=== PATIENT | female | born 1995 | race Caucasian/White ===

== ENCOUNTER 2020-02-05 18:39 | Emergency (ER) | payer BC, MEDICAID, OTHER ==
[2020-02-05] MEDS ORDERED: LIDOCAINE 2% 50 ML MDV SUBQ STA (19:24)
[2020-02-05] MEDS ORDERED: cefTRIAXone 1 GM VIAL IM STA (19:25)
[2020-02-05] MEDS ORDERED: LIDOCAINE 1% 2 ML VIAL MC ONE (19:25)
[2020-02-05] MEDS ORDERED: LIDOCAINE 1% 2 ML VIAL ONE (19:36)
--- NOTE | 2020-02-05 20:00 | ED Physician Documentation ---
History of Present Illness - Stated complaint Stated Complaint: CAT BITE - Chief complaint Chief Complaint: Wound - History obtained from History obtained from: Patient - History of Present Illness Timing: Yesterday Pain level max: 5 Pain level now: 4 - Additonal information Additional information: 24-year-old female presents to the emergency department stating that she was bit in the right index finger yesterday by her cat. Increased swelling redness today. Went to the clinic this morning and was started on Augmentin. Tetanus is up-to-date. She states redness and swelling have increased since that time. No fevers. Review of Systems Constitutional: denies: Fever, Chills : denies: Now EGA Skin: denies: Rash PD PAST MEDICAL HISTORY - Past Medical History Past Medical History: Yes GI: GERD - Past Surgical History Past Surgical History: No - Present Medications Home Medications: Ambulatory Orders Medication Instructions Recorded Confirmed Norgestimate-Ethinyl Estradiol 1 each PO 11/02/13 11/02/13 [Ortho Tri-Cyclen Lo] Acyclovir 200 mg PO 02/05/20 Amox/Clav 875/125 [Augmentin] 1 each PO ONCE 02/05/20 02/05/20 - Allergies Allergies/Adverse Reactions: Allergies Allergy/AdvReac Type Severity Reaction Status Date / Time acetaminophen [From Vicodin] Allergy Rash Verified 02/05/20 18:59 hydrocodone bitartrate * Allergy Rash Verified 02/05/20 18:59 [From Vicodin] Sulfa (Sulfonamide Allergy Rash Verified 02/05/20 18:59 Antibiotics) - Social History Does the pt smoke?: No Smoking Status: Never smoker Does the pt drink ETOH?: No Does the pt have substance abuse?: No - Immunizations Immunizations are current?: Yes - POLST Patient has POLST: No PD ED PE NORMAL - Vitals Vital signs reviewed: Yes - General General: Alert and oriented X 3, No acute distress - HEENT HEENT: Moist mucous membranes - Neck Neck: Supple, no meningeal sign - Derm Derm: Warm and dry - Extremities Extremities: Other (R index finger - swelling and erythema to the prox phalanx of the finger. No palmar tenderness. no pain with extension of the finger. ) - Neuro Neuro: Alert and oriented X 3 Results - Vitals Vitals: Vital Signs - 24 hr 02/05/20 02/05/20 18:56 20:06 Temperature 36.7 C 36.6 C Heart Rate 104 H 92 Respiratory 16 16 Rate Blood Pressure 151/106 H 130/90 H O2 Saturation 99 100 Oxygen O2 Source Room air PD MEDICAL DECISION MAKING - ED course Complexity details: considered differential, d/w patient ED course: Small pustule was visible on the finger. The finger was anesthetized and this was removed. Slight purulence drained. Ultrasound performed. No deep abscess visible. Tendon sheath appears normal. Given Rocephin. Will continue the Augmentin. We will have her rechecked if she is not improved by tomorrow. Patient counseled regarding signs and symptoms for which I believe and urgent re-evaluation would be necessary. Patient with good understanding of and agreement to plan and is comfortable going home at this time This document was made in part using voice recognition software. While efforts are made to proofread this document, sound alike and grammatical errors may occur. Departure - Departure Disposition: 01 Home, Self Care Clinical Impression: Cat bite Qualifiers: Encounter type: initial encounter Qualified Code(s): W55.01XA - Bitten by cat, initial encounter Cellulitis Qualifiers: Site of cellulitis: extremity Site of cellulitis of extremity: finger Laterality: right Qualified Code(s): L03.011 - Cellulitis of right finger Condition: Good Instructions: ED Bite Animal General, ED Infec Skin Cellulitis Follow-Up: Ashia Chaney PA [Primary Care Provider] - Within 3 Days Comments: Continue the Augmentin at home. This should start decreasing by tomorrow. If it is worsening or continuing to spread, please return to the emergency department for repeat evaluation. Discharge Date/Time: 02/05/20 20:06
[2020-02-05 20:07] VITALS: BP 130/90
== END 2020-02-05 20:06 | disposition home or self-care (01) ==
LOC: ED 18:39
DX: S61.250A Open bite of right index finger without damage to nail, initial encounter (principal); L03.011 Cellulitis of right finger; W55.01XA Bitten by cat, initial encounter
CPT/HCPCS: 26010

== ENCOUNTER 2021-12-17 12:08 | Emergency (ER) | payer MEDICAID ==
[2021-12-17 12:50] LABS: BILIRUBIN,URINE NEGATIVE (NEGATIVE); GLUCOSE, URINE (UA) NEGATIVE (NEGATIVE); KETONES,URINE (UA) >=80 mg/dL (NEGATIVE); LEUKOCYTE ESTERASE, URINE NEGATIVE (NEGATIVE); NITRITE,URINE NEGATIVE (NEGATIVE); OCCULT BLOOD,URINE LARGE (NEGATIVE); PROTEIN,URINE TRACE mg/dL (NEGATIVE); UROBILINOGEN,URINE 0.2 (NORMAL) E.U./dL (NORMAL)
[2021-12-17 12:57] LABS: CLARITY,URINE HAZY (CLEAR); HCG UR QUAL NEGATIVE
[2021-12-17 13:00] LABS: BASOPHILS # (AUTO) 0.1 10^3/uL (0.0-0.1); BASOPHILS % (AUTO) 0.4 %; EOSINOPHILS % (AUTO) 0.1 %; HCT - HEMATOCRIT 42.9 % (37.0-47.0); LYMPHOCYTES # (AUTO) 2.5 10^3/uL (1.5-3.5); LYMPHOCYTES % (AUTO) 17.7 %; MEAN CORPUSCULAR HEMOGLOBIN 29.4 pg (27.0-31.0); MEAN CORPUSCULAR HGB CONC 32.6 g/dL (32.0-36.0); MEAN CORPUSCULAR VOLUME 89.9 fL (81.0-99.0); MEAN PLATELET VOLUME 9.8 fL (7.9-10.8); MONOCYTES # (AUTO) 0.9 10^3/uL (0.0-1.0); MONOCYTES % (AUTO) 6.3 %; NEUTROPHILS # (AUTO) 10.7 10^3/uL (1.5-6.6); NEUTROPHILS % (AUTO) 75.1 %; PLT - PLATELET COUNT 445 10^3/uL (130-450); RED BLOOD COUNT 4.77 10^6/uL (4.20-5.40); RED CELL DISTRIBUTION WIDTH 13.4 % (12.0-15.0); WHITE BLOOD COUNT 14.2 x10^3/uL (4.8-10.8)
[2021-12-17 13:02] LABS: ALBUMIN 4.8 g/dL (3.2-5.5); ALBUMIN/GLOBULIN RATIO 1.3 (1.0-2.2); CALCIUM 9.6 mg/dL (8.5-10.3); CREATININE 0.8 mg/dL (0.4-1.0); POTASSIUM 3.2 mmol/L (3.5-5.0); TOTAL PROTEIN 8.6 g/dL (6.7-8.2)
[2021-12-17 13:14] LABS: BACTERIA,URINE Few /HPF (None Seen); EPITHELIAL CELLS,UR FEW Transitional /HPF (<= Few); MUCUS,URINE Marked Strands; RBC,URINE 0-5 /HPF (0-5); SQUAMOUS EPITHELIAL CELL,UR FEW Squamous (<= Few); WBC,URINE 0-3 /HPF (0-5)
[2021-12-17] MEDS ORDERED: SODIUM CHLORIDE 0.9% 1,000 ML IV STA (14:35)
[2021-12-17] MEDS ORDERED: MORPHINE 2 MG/ML CARPUJECT IVP STA (14:35)
--- NOTE | 2021-12-17 14:43 | ED Physician Documentation ---
PD HPI ABD PAIN - Stated complaint Stated Complaint: ABD PX,NAUSEA,SHAKING - Chief complaint Chief Complaint: Abd Pain - History obtained from History obtained from: Patient - History of Present Illness Timing - details: Gradual onset Pain level max: 8 Pain level now: 6 Quality: Aching, Pain Radiation: No: Chest, , Lower back, Left flank, Left shoulder, Right flank, Right shoulder, Upper back Associated symptoms: No: Fever, Nausea, Vomiting, Hematemesis, Diarrhea, Constipation, Melena, Hematochezia, Dysuria, Hematuria, Chest pain, Dizzy, Near syncope / syncope, Loss of appetite, Weight loss, Vaginal dc - Additional information Additional information: Patient is a 26-year-old female who presents to the emergency department with right lower quadrant abdominal pain that started last night and has continued today. Worse with movement, better with rest. Worse with palpation. Nonradiating. She states she started her menses 2 days ago. Denies any possibility of . No urinary symptoms. Patient states that it started after eating [place] food, had vomiting last night. 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 : None HEENT: None Psych: None Musculoskeletal: None Derm: None - Past Surgical History Past Surgical History: No - Present Medications Home Medications: Ambulatory Orders Medication Instructions Recorded Confirmed Norgestimate-Ethinyl Estradiol 1 each PO DAILY 11/02/13 12/17/21 [Ortho Tri-Cyclen Lo] Acyclovir 200 mg PO PRN PRN 02/05/20 12/17/21 Amox/Clav 875/125 [Augmentin] 1 tab PO Q12H #20 tablet 12/17/21 Ondansetron Odt [Zofran] 4 mg TL Q6H PRN #10 tablet 12/17/21 Oxycodone HCl/Acetaminophen 1 - 2 each PO Q6H PRN #14 tablet 12/17/21 [Percocet 5-325 mg Tablet] - Allergies Allergies/Adverse Reactions: Allergies Allergy/AdvReac Type Severity Reaction Status Date / Time acetaminophen [From Vicodin] Allergy Rash Verified 12/17/21 12:24 hydrocodone bitartrate * Allergy Rash Verified 12/17/21 12:24 [From Vicodin] Sulfa (Sulfonamide Allergy Rash Verified 12/17/21 12:24 Antibiotics) - Social History Does the pt smoke?: No Smoking Status: Never smoker Does the pt drink ETOH?: No Does the pt have substance abuse?: Yes Substance Use and Type: Marijuana - Immunizations Immunizations are current?: Yes - POLST Patient has POLST: No PD ED PE NORMAL - Vitals Vital signs reviewed: Yes - General General: Alert and oriented X 3, No acute distress, Well developed/nourished - HEENT HEENT: PERRL, Moist mucous membranes - Neck Neck: Supple, no meningeal sign - Cardiac Cardiac: RRR, Strong equal pulses - Respiratory Respiratory: No respiratory distress, Clear bilaterally - Abdomen Abdomen: Soft, Non distended, Other (Tender to palpation right lower quadrant near McBurney's point. No peritoneal signs. Negative Rovsing, psoas, obturator signs.. Negative heeltap) - Derm Derm: Warm and dry - Extremities Extremities: No deformity - Neuro Neuro: Alert and oriented X 3 - Psych Psych: Normal mood, Normal affect Results - Vitals Vitals: Vital Signs - 24 hr 12/17/21 12/17/21 12/17/21 12:25 14:00 16:00 Temperature 36.9 C 36.6 C 36.6 C Heart Rate 114 H 97 70 Respiratory 20 16 16 Rate Blood Pressure 154/123 H 169/148 H 169/134 H O2 Saturation 100 100 99 Oxygen O2 Source Room air - Labs Labs: Laboratory Tests 12/17/21 12/17/21 12/17/21 12:38 12:38 12:44 WBC 14.2 H RBC 4.77 Hgb 14.0 Hct 42.9 MCV 89.9 MCH 29.4 MCHC 32.6 RDW 13.4 Plt Count 445 MPV 9.8 Neut # (Auto) 10.7 H Lymph # (Auto) 2.5 [place] # (Auto) 0.9 Eos # (Auto) 0.0 Baso # (Auto) 0.1 Absolute Nucleated RBC 0.00 Nucleated RBC % 0.0 Sodium Potassium Chloride Carbon Dioxide Anion Gap BUN Creatinine Estimated GFR (MDRD) Glucose Calcium Total Bilirubin AST ALT Alkaline Phosphatase Total Protein Albumin Globulin Albumin/Globulin Ratio Lipase Urine Color YELLOW Urine Clarity HAZY Urine pH 7.0 Ur Specific Riley 1.020 Urine Protein TRACE Urine Glucose (UA) NEGATIVE Urine Ketones >=80 H Urine Occult Blood LARGE H Urine Nitrite NEGATIVE Urine Bilirubin NEGATIVE Urine Urobilinogen 0.2 (NORMAL) Ur Leukocyte Esterase NEGATIVE Urine RBC 0-5 Urine WBC 0-3 Ur Epithelial Cells FEW Transitional Ur Squamous Epith Cells FEW Squamous Urine Bacteria Few Urine Mucus Marked Strands Ur Microscopic Review INDICATED Urine Culture Comments NOT INDICATED Urine HCG, Qual NEGATIVE 12/17/21 12:44 WBC RBC Hgb Hct MCV MCH MCHC RDW Plt Count MPV Neut # (Auto) Lymph # (Auto) [place] # (Auto) Eos # (Auto) Baso # (Auto) Absolute Nucleated RBC Nucleated RBC % Sodium 137 Potassium 3.2 L Chloride 100 L Carbon Dioxide 24 Anion Gap 13.0 BUN 8 Creatinine 0.8 Estimated GFR (MDRD) 88 L Glucose 118 H Calcium 9.6 Total Bilirubin 1.0 AST 24 ALT 15 Alkaline Phosphatase 78 Total Protein 8.6 H Albumin 4.8 Globulin 3.8 Albumin/Globulin Ratio 1.3 Lipase 34 Urine Color Urine Clarity Urine pH Ur Specific Riley Urine Protein Urine Glucose (UA) Urine Ketones Urine Occult Blood Urine Nitrite Urine Bilirubin Urine Urobilinogen Ur Leukocyte Esterase Urine RBC Urine WBC Ur Epithelial Cells Ur Squamous Epith Cells Urine Bacteria Urine Mucus Ur Microscopic Review Urine Culture Comments Urine HCG, Qual - Rads (name of study) CT abdomen pelvis Radiology: Final report received, EMP read contemporaneously, See rad report PD MEDICAL DECISION MAKING - ED course Complexity details: reviewed results, re-evaluated patient, considered differential, d/w patient, d/w family, d/w oncology consultant ED course: 26-year-old female with abdominal pain. Unclear etiology. Mild leukocytosis. Had vomiting last night. Pain well controlled in the emergency department. Tolerating p.o. without difficulty. There is no right lower quadrant inflammatory change, appendix not definitively visualized. Discussed the case with Dr. Reyes, general surgery on-call, Reviewed all labs and radiographic images, she recommends placing the patient on oral antibiotics and having her follow-up in 24 to 48 hours if she is not improved. Patient is well-appearing, nontoxic. Afebrile. Possible gastroenteritis? Appendicitis precautions given at bedside. Patient counseled regarding signs and symptoms for which I believe and urgent re-evaluation would be necessary. Patient with good understanding of and agreement to plan and is comfortable going home at this time This document was made in part using voice recognition software. While efforts are made to proofread this document, sound alike and grammatical errors may occur. IMPRESSION: Appendix is not visualized. However, no right lower quadrant inflammatory change. No bowel obstruction. No free fluid or free air. Departure - Departure Disposition: Home, Self Care Clinical Impression: Abdominal pain Qualifiers: Abdominal location: right lower quadrant Qualified Code(s): R10.31 - Right lower quadrant pain Condition: Good Instructions: ED Abdominal Pain Appendx Poss Follow-Up: MANINDER POTTER ARNP [Primary Care Provider] - Within 3 Days Prescriptions: Amox/Clav 875/125 [Augmentin] 1 tab PO Q12H #20 tablet Oxycodone HCl/Acetaminophen [Percocet 5-325 mg Tablet] 1 - 2 each PO Q6H PRN #14 tablet PRN Reason: pain Ondansetron Odt [Zofran] 4 mg TL Q6H PRN #10 tablet PRN Reason: Nausea / Vomiting Comments: Your prescriptions were sent to [facility] [place] in [place]. You should start to improve within the next 24 hours, if you develop fevers, worsening pain or worsening symptoms, please return for further evaluation. As we discussed your appendix was not seen clearly on CT scan, but they do not see secondary signs of appendicitis. I did speak with the general surgeon on-call, Dr. Daugherty as well. We will trial you on antibiotics for home to see if your symptoms resolve. I am prescribing a short course of narcotic pain medication for you. These are potentially dangerous and addictive medications that should be used carefully. These medications may constipate you. Take an [id number] stool softener (docusate) twice daily with plenty of water while taking these medications. If you go 24 hours without a bowel movement, take [id number] miralax, per package instructions. Do not drink or drive while taking these medications. If you received narcotic or sedating medications while in the emergency department, do not drive for 24 hours. Store this medication in a safe, secure place and out of reach of children. It is a violation of federal law to give or sell this medication to another person or to use in a manner other than prescribed. The ED will not refill narcotic prescriptions, including prescriptions lost or stolen. To dispose of unwanted medications: 1. [facility] [address] in [place] has a medication drop box. They accept prescription medications (in pill form) Thursday through Thursday 9:00 a.m. to 5:00 p.m. 2. [facility] accepts prescription medications (in pill form only) for disposal year round. Call for more information. 3. Contact the [facility] for the next [facility] sponsored prescription drug collection event. , [phone], or [phone]; Discharge Date/Time: 12/17/21 16:38
[2021-12-17] MEDS ORDERED: IOVERSOL 320 100 ML VIAL IVP ONE ×2 (14:49→15:01)
--- NOTE | 2021-12-17 15:40 | CT Report ---
PROCEDURE: Abdomen/Pelvis W INDICATIONS: RLQ abd pain CONTRAST: IV CONTRAST: Optiray 320 ml: 100 PO CONTRAST: *NO PO CONTRAST TECHNIQUE: After the administration of IV contrast, 5 mm thick sections acquired from the diaphragms to the symp hysis. 5 mm thick coronal and sagittal reformats were acquired. For radiation dose reduction, the f ollowing was used: automated exposure control, adjustment of mA and/or kV according to patient size. COMPARISON: None. FINDINGS: Image quality: Excellent. ABDOMEN: Lung bases: Lung bases are clear. Heart size is normal. Solid organs: Liver and spleen are normal in size and enhancement. Mild steatosis is present. Gallbl adder is unremarkable Biliary system is non dilated. Pancreas enhances normally. No adrenal nodule s. Kidneys demonstrate normal size and enhancement, without hydronephrosis. Peritoneum and bowel: Bowel loops demonstrate normal wall thickness and caliber. No free fluid or a ir. The appendix is not definitively identified. No right lower quadrant inflammatory change. Nodes and vessels: No retroperitoneal or mesenteric adenopathy by size criteria. Aorta and inferior vena cava are normal in size. Miscellaneous: No ventral hernias. PELVIS: Genitourinary: Bladder wall thickness is normal. Miscellaneous: No inguinal hernias or adenopathy. Bones: No suspicious bony lesions. No vertebral body compression fractures. IMPRESSION: Appendix is not visualized. However, no right lower quadrant inflammatory change. No bowel obstruction. No free fluid or free air. Reviewed by: Angela Davis MD on 12/17/2021 3:38 PM PDT Approved by: Angela Davis MD on 12/17/2021 3:38 PM PDT Station ID: [id number]
[2021-12-17] MEDS ORDERED: oxyCODONE 5 MG TABLET PO STA (16:21)
[2021-12-17] MEDS ORDERED: AMOX/CLAV 875 MG/125 MG TABLET PO STA (16:21)
[2021-12-17 16:23] VITALS: BP 169/134
== END 2021-12-17 16:38 | disposition home or self-care (01) ==
LOC: ED 12:08
DX: R10.31 Right lower quadrant pain (principal)
CPT/HCPCS: 36415; 74177; 80053; 81001; 81025; 83690; 85025; 96361; 96374; 99282; 99284; A9270; Q9967; 81003; 87086

== ENCOUNTER 2023-03-09 07:00 | Outpatient (CLI) | payer MEDICAID ==
--- NOTE | 2023-03-09 16:10 | XRAY Report ---
PROCEDURE: Foot 3 View LT INDICATIONS: CONTUSION OF LEFT FOOT TECHNIQUE: 3 views of the foot were acquired. COMPARISON: None. FINDINGS: Bones: No fractures or dislocations. No suspicious bony lesions. Soft tissues: No suspicious soft tissue calcifications or masses. IMPRESSION: No acute bony abnormality. Reviewed by: Finn Garcia MD on 03/09/2023 4:09 PM PDT Approved by: Finn Garcia MD on 03/09/2023 4:09 PM PDT Station ID: [id number]
== END 2023-03-09 23:59 | disposition home or self-care (01) ==
LOC: DI.S 07:00
PROVIDERS: ATTEND Physician Assistant
DX: S90.32XA Contusion of left foot, initial encounter (principal)